=== PATIENT | male | born 1980 | race Caucasian/White ===

== ENCOUNTER 2017-05-24 01:54 | Emergency (ER) | payer MEDICAID, OTHER ==
[2017-05-24] MEDS: ALBUTEROL 0.5% (NEB) 2.5 MG/0.5 ML AMP INH (04:19)
[2017-05-24] MEDS: IPRATROPIUM (NEB) 0.5 MG/2.5 ML AMP NEB (04:19)
[2017-05-24] MEDS: METHYLPREDNISOLONE 125 MG INJ IM (04:59)
== END 2017-05-24 05:51 | disposition home or self-care (01) ==
LOC: FTE 01:54
DX: J20.9 Acute bronchitis, unspecified (principal)
CPT/HCPCS: 94644; 96372; 99284-25